=== PATIENT | male | born 1985 | race Caucasian/White ===

== ENCOUNTER 2016-10-05 16:39 | Emergency (ER) | payer SELFPAY ==
[~2016-10-05] VITALS: Wt 68.5 kg
--- NOTE | 2016-10-05 17:24 | ERD ---
ER Documentation Chief Complaint Date/Time DATE: 10/05/16 TIME: 17:15 Chief Complaint PENILE DISCHARGE SINCE AM HPI 31-year-old male complaining of penile discharge since yesterday. Patient stated that he had sex for the first time with another woman 6 days ago, he did not use condoms. Yesterday, he noticed yellow, mucousy discharge from his penis. He noticed some more this morning. He reports slight dysuria. Denies pain in the penis or scrotum. Denies fever or chills. Denies pelvic pain or flank pain. ROS All systems reviewed and are negative except as per history of present illness. PMhx/Soc Medical and Surgical Hx: pt denies Medical Hx, pt denies Surgical Hx Hx Alcohol Use: Yes Hx Substance Use: No Hx Tobacco Use: No Smoking Status: Never smoker Physical Exam Vitals Vital Signs Date Time Temp Pulse Resp B/P Pulse Ox O2 Delivery O2 Flow Rate FiO2 10/05/16 16:43 98.2 55 12 160/99 98 Physical Exam General: Well-developed, well-nourished, conscious and coherent, in no distress Skin: Warm and dry without rash, good texture and turgor Head: Normocephalic without evidence of trauma Eyes: Sclera and conjunctivae normal; pupils equal, round, and reactive to light; extraocular movements are intact Chest: Normal AP diameter. Good expansion without retractions. Nontender. Lungs are clear to auscultate bilaterally with good tidal volume Heart: Regular rate and rhythm. No murmur, rub, or gallops heard Abdomen: Soft and nontender without masses, guarding, or rebound. Bowel sounds are active. No hepatosplenomegaly Back: Without spinal or CVA tenderness Pelvis: Nontender to palpation and stable to compression : Uncircumsized male. Penis normal, no penile discharge. Normal scrotum, no mass noted. No inguinal hernia. Extremities: Full range of motion. Good strength bilaterally. No clubbing, cyanosis, or edema. Peripheral pulses are intact. Sensation intact Neuro: Alert and oriented 4, GCS 15. Cranial nerves grossly intact. Motor and sensory exams nonfocal. Moves all extremities. Speech clear. Gait normal Results 24 hrs Laboratory Tests Test 10/05/16 17:29 Bedside Urine pH (LAB) 7.5 Bedside Urine Protein (LAB) Negative Bedside Urine Glucose (UA) Negative Bedside Urine Ketones (LAB) Negative Bedside Urine Blood Negative Bedside Urine Nitrite (LAB) Negative Bedside Urine Leukocyte Esterase (L Negative Current Medications Medications (Trade) Dose Ordered Sig/Ger Route PRN Reason Start Time Stop Time Status Last Admin Dose Admin Azithromycin (Zithromax) 1,000 mg ONCE ONCE PO 10/05/16 17:30 10/05/16 17:31 DC 10/05/16 17:11 Ceftriaxone Sodium (Rocephin) 250 mg ONCE ONCE IM 10/05/16 17:30 10/05/16 17:31 DC 10/05/16 17:11 Lidocaine (Xylocaine 1% (Mdv) 20 ml) 1 ml ONCE ONCE IM 10/05/16 17:30 10/05/16 17:31 DC 10/05/16 17:11 Procedures/MDM Well-appearing 31-year-old male complaining of penile discharge after unprotected sex. He is exams are unremarkable. Urine dip is negative for UTI. Urine sent out for chlamydia/gonorrhea testing, results. Because of patient' s received sexual behavior, I will treat him for possible gonorrhea/chlamydia infection preemptively. Azithromycin 1 g p.o. and Rocephin 250 mg IM given to the patient in the ED. I advised patient that if he desires HIV or syphilis testing, he will need to go to [facility]. Referral provided for the patient. Patient appears well, stable for discharge and outpatient management. Medical decision making shared with patient and family. Education provided to patient and family. Patient and family expressed understanding of the plan. Medications on discharge: None. Follow-up: Primary care provider in 2-3 days or return to ED if worse. Departure Diagnosis: Primary Impression: Penile discharge Condition: Good Patient Instructions: What Are Sexually Transmitted Diseases (STDs)? Ref[facility]: [facility] Usted se arreola hecho un examen mdico de control que le indica que no est en luz condicin que requiera tratamiento urgente en el Departamento de Emergencia. Un estudio ms profundo y el tratamiento de barakat condicin pueden esperar sin ningn riesgo hasta que usted sea atendida/o en el consultorio de barakat mdico o luz cl ayaan. Es responsabilidad suya arreglar luz jovi para el seguimiento del hayder. MANEJO DE CONDICIONES NO URGENTES EN EL FUTURO 1) Si usted tiene un mdico de atencin primaria: Usted debera llamar a barakat mdico de atencin primaria antes de venir al departamento de emergencia. Despus de las horas de consultorio, barakat doctor o barakat asociado/a est disponible por telfono. El mdico o enfermero de amado en el servicio telefnico puede asesorarle por nicolás medio para atender el problema, o hayder contrario se puede programar luz jovi. 2) Si usted no tiene un mdico de atencin primaria: Llame al mdico o clnica de referencia que aparece abajo soila las horas de consultorio para hacer luz jovi para que le vean. CLINICAS: [facility] [phone] [facility] [phone] [facility] [phone] [facility]. [place] [phone] [facility]. [place] [phone] [facility]. [phone] [address] [facility] Hours: 8:00 am - 5:00 pm Additional Instructions: Llame al doctor MAANA y christel luz JOVI PARA DENTRO DE 2-3 BUSBY.Dgale a la secretaria que nosotros le instruimos hacer esta jovi.Avise o llame si barakat condicin se empeora antes de la jovi. Regresa aqui si peor o no mejor. LARA MCCRAY NP October 05, 2016 17:24
[2016-10-05 17:26] LABS: URINE BLOOD (Dip) POC Negative (NEGATIVE)
[2016-10-05] MEDS ORDERED: LIDOCAINE 1% (MDV) 20 ML INJ IM ONE (17:30)
[2016-10-05] MEDS ORDERED: CEFTRIAXONE 250 MG INJ IM ONE (17:30)
[2016-10-05] MEDS ORDERED: AZITHROMYCIN 250 MG TAB PO ONE (17:30)
== END 2016-10-05 19:07 | disposition home or self-care (01) ==
LOC: FTE 16:39
DX: R36.9 Urethral discharge, unspecified (principal)
CPT/HCPCS: 81003; 87591; J0696; 96372

== ENCOUNTER 2018-02-19 19:22 | Emergency (ER) | END 2018-02-20 01:04 | disposition left against medical advice (07) ==